=== PATIENT | female | born 2000 | race Caucasian/White ===

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

== ENCOUNTER 2022-09-18 14:12 | Emergency (ER) | payer MEDICAID ==
[~2022-09-18] VITALS: Ht 157.5 cm; Wt 71.4 kg
[2022-09-18 14:41] LABS: CLARITY,URINE SLIGHTLY CLOUDY (Clear); COLOR,URINE YELLOW (Yellow); GLUCOSE, URINE NEGATIVE (Neg); KETONES,URINE >=80 mg/dl (Neg); LEUKOCYTE ESTERASE ,URINE NEGATIVE (Neg); NITRITES, URINE NEGATIVE (Neg); OCCULT BLOOD,URINE MODERATE (Neg); PH,URINE 5.5 (4.8-8.0); PROTEIN,URINE 30 mg/dl (Neg); UA COLLECTION TYPE CLN CATCH MIDSTREAM; UROBILINOGEN,URINE 0.2 E.U/dL (0.2-1.0)
[2022-09-18 14:47] LABS: MUCUS STRANDS MANY /LPF (Neg); SQUAMOUS EPITHELIAL CELL,UR MANY /LPF (FEW)
[2022-09-18 14:48] LABS: BACTERIA,URINE 1+ /HPF (Neg)
[2022-09-18] MEDS ORDERED: ondansetron 4mg rapidly disintigrating tab PO ONE (14:50)
[2022-09-18] MEDS ORDERED: HYDROcodone/acetaminophen 10/325mg tab PO ONE (14:50)
[2022-09-18] MEDS ORDERED: ketorolac trometh. 30mg/ml inj. IM ONE (14:50)
[2022-09-18 14:54] LABS: AMORPHOUS URATES 1+
[2022-09-18] MEDS ORDERED: normal saline 1000ml 1,000 ML IV ONE (15:20)
[2022-09-18] MEDS ORDERED: morphine 4 MG/ML inj SYRINge IV ONE ×3 (15:40→17:50)
[2022-09-18 16:46] LABS: URINE HCG NEGATIVE (NEG)
[2022-09-18 18:27] VITALS: BP 109/71
[2022-09-18 18:37] LABS: BASOPHILS % (AUTO) 0.2 % (0-1); EOSINOPHILS % (AUTO) 0 % (0-6); HEMATOCRIT 37.1 % (35.0-45.0); HEMOGLOBIN 11.8 g/dl (12.0-16.0); LYMPHOCYTES # (AUTO) 1.2 X10'3 (1.1-4.8); LYMPHOCYTES % (AUTO) 7.5 % (21-51); MEAN CORPUSCULAR HEMOGLOBIN 26.1 PG (27.0-31.0); MEAN CORPUSCULAR HGB CONC 31.8 g/dL (33.0-36.5); MEAN PLATELET VOLUME 10.3 FL (7.4-10.4); MONOCYTES # (AUTO) 0.3 X10'3 (0-0.9); MONOCYTES % (AUTO) 2.1 % (2-12); NEUTROPHILS # (AUTO) 14.5 X10'3 (1.8-7.7); NEUTROPHILS % (AUTO) 90.2 % (42-75); PLATELET COUNT 293 X10'3 (140-440); RED BLOOD COUNT 4.52 X10'6 (4.20-5.60); RED CELL DISTRIBUTION WIDTH 15.5 % (11.5-14.5); WHITE BLOOD COUNT 16.1 X10'3 (4.5-11.0)
[2022-09-18 18:43] LABS: ALANINE AMINOTRANSFERASE 23 U/L (12-78); ALBUMIN 3.7 G/DL (3.4-5.0); ALBUMIN/GLOBULIN RATIO 1.1 (1.1-1.5); ALKALINE PHOSPHATASE 70 IU/L (46-116); ANION GAP 12 (8-16); ASPARTATE AMINO TRANSFERASE 14 U/L (10-37); BILIRUBIN,TOTAL 0.4 MG/DL (0.1-1.0); BLOOD UREA NITROGEN 9 MG/DL (7-18); BUN/CREATININE RATIO 11.7 (6.6-38.0); CALCIUM 8.7 MG/DL (8.5-10.1); CHLORIDE 105 MMOL/L (99-107); CREATININE 0.77 MG/DL (0.40-0.90); GLUCOSE 72 MG/DL (70-104); POTASSIUM 4.1 MMOL/L (3.5-5.1); SODIUM 138 MMOL/L (135-145); TOTAL CARBON DIOXIDE 21.2 MMOL/L (24-32); eGFR > 90 ML/MIN
[2022-09-18] MEDS ORDERED: HYDR-3965 PO (19:37)
[2022-09-18] MEDS ORDERED: FLO0.4C PO (19:37)
[2022-09-18] MEDS ORDERED: tamsulosin 0.4mg capsule PO SCH (19:45)
[2022-09-18 19:56] LABS: BETA HCG,QUANTITATIVE < 1.0 mIU/ml
[2022-09-18] MEDS ORDERED: ONDA4TAB12 PO (20:01)
[2022-09-19] MEDS ORDERED: NO HOME MEDS (17:00)
== END 2022-09-18 20:13 | disposition home or self-care (01) ==
LOC: ER 14:12
DX: N20.0 Calculus of kidney (principal); Z20.822 Contact with and (suspected) exposure to COVID-19; N13.4 Hydroureter; R10.84 Generalized abdominal pain; R11.10 Vomiting, unspecified; R30.9 Painful micturition, unspecified; Z87.440 Personal history of urinary (tract) infections; Z87.442 Personal history of urinary calculi; Z79.2 Long term (current) use of antibiotics; Z79.899 Other long term (current) drug therapy
CPT/HCPCS: 36415; 74176; 76770; 80053; 81001; 81025; 84702; 85025; 87811; 96361; 96372; 96374; 96376; 99285; J1885; J2270; J7030

== ENCOUNTER 2022-09-19 11:10 | Inpatient (IN) | payer MEDICAID ==
[~2022-09-19] VITALS: Ht 157.5 cm; Wt 157.0 kg
[~2022-09-19 11:10] MED LIST changes: +FLO0.4C PO; +HYDR-3965 PO; +ONDA4TAB12 PO
[2022-09-19 12:12] LABS: CLARITY,URINE CLOUDY (Clear); COLOR,URINE YELLOW (Yellow); GLUCOSE, URINE NEGATIVE (Neg); KETONES,URINE >=80 mg/dl (Neg); LEUKOCYTE ESTERASE ,URINE NEGATIVE (Neg); NITRITES, URINE NEGATIVE (Neg); OCCULT BLOOD,URINE MODERATE (Neg); PROTEIN,URINE TRACE mg/dl (Neg); URINE HCG NEGATIVE (NEG); UROBILINOGEN,URINE 0.2 E.U/dL (0.2-1.0)
[2022-09-19 12:13] LABS: UA COLLECTION TYPE CLN CATCH MIDSTREAM
[2022-09-19 12:19] LABS: BASOPHILS % (AUTO) 0.4 % (0-1); EOSINOPHILS # (AUTO) 0.1 X10'3 (0-0.9); EOSINOPHILS % (AUTO) 0.5 % (0-6); HEMATOCRIT 37.5 % (35.0-45.0); LYMPHOCYTES # (AUTO) 1.7 X10'3 (1.1-4.8); LYMPHOCYTES % (AUTO) 15.7 % (21-51); MEAN CORPUSCULAR HEMOGLOBIN 26.3 PG (27.0-31.0); MEAN PLATELET VOLUME 10.5 FL (7.4-10.4); MONOCYTES # (AUTO) 0.8 X10'3 (0-0.9); MONOCYTES % (AUTO) 7.6 % (2-12); NEUTROPHILS % (AUTO) 75.8 % (42-75); PLATELET COUNT 276 X10'3 (140-440); RED BLOOD COUNT 4.58 X10'6 (4.20-5.60); RED CELL DISTRIBUTION WIDTH 15.5 % (11.5-14.5); WHITE BLOOD COUNT 10.5 X10'3 (4.5-11.0)
[2022-09-19 12:22] LABS: BACTERIA,URINE 1+ /HPF (Neg); HYALINE CASTS 0-3 /LPF (NEGATIVE)
[2022-09-19 12:24] LABS: MUCUS STRANDS MANY /LPF (Neg)
[2022-09-19 12:26] LABS: SQUAMOUS EPITHELIAL CELL,UR MANY /LPF (FEW)
--- NOTE | 2022-09-19 12:26 | NUR ---
LAB CALLED [facility]/A IS REJECTED FOR CULTURE
[2022-09-19 12:34] LABS: ALANINE AMINOTRANSFERASE 20 U/L (12-78); ALBUMIN 3.5 G/DL (3.4-5.0); ALKALINE PHOSPHATASE 73 IU/L (46-116); ANION GAP 10 (8-16); ASPARTATE AMINO TRANSFERASE 16 U/L (10-37); BILIRUBIN,TOTAL 0.6 MG/DL (0.1-1.0); BLOOD UREA NITROGEN 9 MG/DL (7-18); BUN/CREATININE RATIO 8.8 (6.6-38.0); CALCIUM 8.6 MG/DL (8.5-10.1); CHLORIDE 104 MMOL/L (99-107); CREATININE 1.02 MG/DL (0.40-0.90); GLUCOSE 80 MG/DL (70-104); LIPASE 61 U/L (73-393); POTASSIUM 3.5 MMOL/L (3.5-5.1); SODIUM 138 MMOL/L (135-145); TOTAL CARBON DIOXIDE 24.5 MMOL/L (24-32); eGFR 68 ML/MIN
[2022-09-19] MEDS ORDERED: ketorolac trometh. 30mg/ml inj. IV ONE (13:00)
[2022-09-19] MEDS ORDERED: meperidine/PF 50mg/ml syringe IV ONE ×2 (13:00→15:40)
[2022-09-19] MEDS ORDERED: normal saline 1000ML IV soln IVB ONE (13:00)
[2022-09-19] MEDS ORDERED: normal saline 1000ml 1,000 ML IV ONE (13:00)
[2022-09-19] MEDS: sildenafil citrate 20mg tablet PO SCH (15:35)
[2022-09-19] MEDS ORDERED: CefTRIAXone 2gm/D5W 50ml BAG 50 ML IV ONE (15:40)
[2022-09-19] MEDS ORDERED: HYDROcodone/acetaminophen 5mg/325mg tablet PO PRN (15:45)
[2022-09-19] MEDS ORDERED: ondansetron/PF 4mg/2ml inj IV PRN (15:45)
[2022-09-19] MEDS ORDERED: acetaminophen 325mg tablet PO PRN (15:45)
[2022-09-19] MEDS ORDERED: magnesium Cl slow-release 64mg tablet PO PRN (15:45)
[2022-09-19] MEDS ORDERED: potassium Cl 20 mEq SR tablet PO PRN ×2 (15:45)
[2022-09-19] MEDS ORDERED: potassium Cl 40MEQ/1/2NS 520ml 520 ML IV PRN (15:45)
[2022-09-19] MEDS ORDERED: magnesium 4gm in 100ml NS 100 ML IV PRN (15:45)
[2022-09-19] MEDS ORDERED: normal saline 1000ml 1,000 ML IV SCH (15:45)
[2022-09-19] MEDS ORDERED: NO HOME MEDS (17:00)
[2022-09-19] MEDS: K and/or MAG REPLACEMENT MC SCH (19:52)
[2022-09-19] MEDS ORDERED: temazepam 15mg capsule PO PRN (21:00)
[2022-09-19] MEDS: morphine 2 MG/ML inj. syringe IV PRN (21:53)
[2022-09-20] VITALS (11 sets, daily range): BP systolic 95–107; BP diastolic 60–78
[2022-09-20] MEDS: morphine 2 MG/ML inj. syringe IV PRN ×3 (03:33→13:36)
[2022-09-20] MEDS: K and/or MAG REPLACEMENT MC SCH (07:40)
[2022-09-20 07:50] LABS: BASOPHILS # (AUTO) 0.1 X10'3 (0-0.2); BASOPHILS % (AUTO) 0.8 % (0-1); EOSINOPHILS # (AUTO) 0.2 X10'3 (0-0.9); EOSINOPHILS % (AUTO) 2.4 % (0-6); HEMATOCRIT 29.5 % (35.0-45.0); HEMOGLOBIN 9.7 g/dl (12.0-16.0); LYMPHOCYTES # (AUTO) 2.7 X10'3 (1.1-4.8); MEAN CORPUSCULAR HEMOGLOBIN 26.9 PG (27.0-31.0); MEAN CORPUSCULAR HGB CONC 32.8 g/dL (33.0-36.5); MEAN PLATELET VOLUME 10.3 FL (7.4-10.4); MONOCYTES # (AUTO) 0.6 X10'3 (0-0.9); MONOCYTES % (AUTO) 7.9 % (2-12); NEUTROPHILS # (AUTO) 3.8 X10'3 (1.8-7.7); NEUTROPHILS % (AUTO) 51.9 % (42-75); PLATELET COUNT 225 X10'3 (140-440); RED CELL DISTRIBUTION WIDTH 15.1 % (11.5-14.5); WHITE BLOOD COUNT 7.4 X10'3 (4.5-11.0)
[2022-09-20 07:56] LABS: ALBUMIN 2.6 G/DL (3.4-5.0); ANION GAP 13 (8-16); BLOOD UREA NITROGEN 4 MG/DL (7-18); BUN/CREATININE RATIO 6.8 (6.6-38.0); CALCIUM 7.9 MG/DL (8.5-10.1); CHLORIDE 108 MMOL/L (99-107); CREATININE 0.59 MG/DL (0.40-0.90); GLUCOSE 75 MG/DL (70-104); MAGNESIUM 1.7 MG/DL (1.5-2.4); POTASSIUM 3.4 MMOL/L (3.5-5.1); SODIUM 140 MMOL/L (135-145); TOTAL CARBON DIOXIDE 19.5 MMOL/L (24-32); eGFR > 90 ML/MIN
[2022-09-20] MEDS: sildenafil citrate 20mg tablet PO SCH (13:00)
[2022-09-20 13:28] LABS: BASOPHILS % (AUTO) 0.6 % (0-1); EOSINOPHILS # (AUTO) 0.1 X10'3 (0-0.9); EOSINOPHILS % (AUTO) 1.7 % (0-6); HEMATOCRIT 33.8 % (35.0-45.0); HEMOGLOBIN 10.8 g/dl (12.0-16.0); LYMPHOCYTES # (AUTO) 2.2 X10'3 (1.1-4.8); LYMPHOCYTES % (AUTO) 29.4 % (21-51); MEAN CORPUSCULAR HEMOGLOBIN 26.4 PG (27.0-31.0); MEAN CORPUSCULAR VOLUME 82.7 FL (78-98); MEAN PLATELET VOLUME 10.6 FL (7.4-10.4); MONOCYTES # (AUTO) 0.4 X10'3 (0-0.9); MONOCYTES % (AUTO) 5.6 % (2-12); NEUTROPHILS # (AUTO) 4.8 X10'3 (1.8-7.7); NEUTROPHILS % (AUTO) 62.7 % (42-75); PLATELET COUNT 246 X10'3 (140-440); RED BLOOD COUNT 4.09 X10'6 (4.20-5.60); RED CELL DISTRIBUTION WIDTH 15.4 % (11.5-14.5); WHITE BLOOD COUNT 7.6 X10'3 (4.5-11.0)
[2022-09-20] MEDS ORDERED: iohexol 350MG/ML 100ml bottle IV ONE (13:59)
[2022-09-20] MEDS ORDERED: proCHLORperazine 10 MG/2 ml inj IV PRN (14:40)
[2022-09-20] MEDS ORDERED: acetaminophen 1,000mg/100ml IV 100 ML IV PRN (14:40)
[2022-09-20] MEDS ORDERED: morphine 2 MG/ML inj. syringe IV PRN (14:40)
[2022-09-20] MEDS ORDERED: meperidine/PF 25mg/ml syringe IV PRN (14:40)
[2022-09-20] MEDS ORDERED: hydrALAZINE 20mg/ml inj. IV PRN (14:40)
[2022-09-20] MEDS ORDERED: ondansetron/PF 4mg/2ml inj IV PRN (14:40)
[2022-09-20] MEDS ORDERED: ringers solution, lacted 1,000 ML IV SCH (14:40)
[2022-09-20] MEDS ORDERED: HYDROmorphone/PF 0.2 MG/ML SYRINGE IV PRN ×2 (14:40)
[2022-09-20] MEDS ORDERED: labetalol 20mg/4ml (5mg/ml) syringe IV PRN (14:40)
[2022-09-20] MEDS ORDERED: morphine 4 MG/ML inj SYRINge IV PRN (14:40)
[2022-09-20] MEDS ORDERED: sevoflurane 250ml liquid IH ONE (14:41)
[2022-09-20] MEDS ORDERED: fentaNYL/PF 50MCG/1 ML 2ML syringe ONE (14:46)
[2022-09-20] MEDS ORDERED: midazolam 1 mg/ML 2ml injection ONE (14:49)
[2022-09-20 15:01] LABS: % IRON SATURATION 7 % (11-46); IRON 17 UG/DL (49-151); TOTAL IRON BINDING CAPACITY 246 UG/DL (259-388)
[2022-09-20] MEDS ORDERED: propofol inj 20 ML IV ONE (15:27)
[2022-09-20] MEDS ORDERED: LIDOcaine 2% (20mg/ml) 5ml vial ONE (15:27)
[2022-09-20] MEDS ORDERED: ondansetron/PF 4mg/2ml inj ONE (15:27)
[2022-09-20] MEDS ORDERED: dexamethasone sod phosphate 4mg/ml inj. ONE (15:27)
--- NOTE | 2022-09-20 16:28 | NUR ---
PATIENT HAS MET ALL CRITERIA FOR TRANSFER TO THE SURGICAL FLOOR. VSS. DRESSINGS INTACT. BED LOW, CALL LIGHT PRESENT AND 2 RAILS UP. RN PRESENT TO ACCEPT CARE OF PATIENT AND REPORT HAS BEEN CALLED. ALL QUESTIONS ANSWERED TO ACCEPTING RN. Addendum: 09/20/22 at 1635 by Ramu Cooper RN Amended: Links added. Addendum: 09/20/22 at 1642 by Ramu Cooper RN CANCELLED ALL ENTRY.
--- NOTE | 2022-09-20 16:40 | NUR ---
DR. JUAREZ UPDATED NURSE THAT PATIENT CAN BE DISCHARGED TODAY.
--- NOTE | 2022-09-20 17:10 | NUR ---
PATIENT URINATED 700 CC OF PINK, CLOUDY URINE WITH PAIN. MD STATED THAT SHE WILL FOLLOW UP WITH MD OFFICE TO PULL URINARY STENT OUT. NO NEW ORDERED RECEIVED AT THIS TIME.
--- NOTE | 2022-09-20 17:50 | NUR ---
ALL DISCHARGE CRITERIA HAS BEEN MET. VSS, PAIN AT A TOLERABLE LEVEL, VOIDING AND ABLE TO SAFELY AMBULATE AND TRANSFER SELF. IV TAKEN OUT WITHOUT ANY COMPLICATIONS. ALL DISCHARGE INSTRUCTIONS COVERED WITH PATIENT AND ALL QUESTIONS ANSWERED. PATIENT TAKEN OUT VIA WHEELCHAIR WITH ALL BELONGINGS TO PERSONAL VEHICLE WHERE FAMILY DROVE PATIENT HOME. Addendum: 09/20/22 at 1806 by Ramu Cooper RN Amended: Links added.
== END 2022-09-21 01:03 | disposition home or self-care (01) | DRG 446 ==
LOC: ER 11:11 → ED HOLD 15:48
PROVIDERS: ADMIT Internal Medicine; ATTEND Internal Medicine
PROC: 0TC68ZZ Extirpation of Matter from Right Ureter, Via Natural or Artificial Opening Endoscopic (ICD-10-PCS; principal; 2022-09-19)
PROC: 0T768DZ Dilation of Right Ureter with Intraluminal Device, Via Natural or Artificial Opening Endoscopic (ICD-10-PCS; 2022-09-19)
DX: N13.6 Pyonephrosis (principal); D64.9 Anemia, unspecified; N20.2 Calculus of kidney with calculus of ureter
CPT/HCPCS: 36415; 76000; 76700; 80048; 80053; 81001; 81025; 83540; 83550; 83605; 83690; 83735; 84145; 85025; 87040; 87081; 96361; 96374; 96375; 99285; A4618; C1769; C2617; G0378; J0696; J1100; J1885; J2175; J2250; J2270; J2405; J2704; J3010; J3490; J7030; Q9967